=== PATIENT | female | born 1970 | race Caucasian/White ===

== ENCOUNTER 2016-10-26 05:57 | Emergency (ER) | payer BC ==
[2016-10-26] MEDS ORDERED: Ondansetron 4 MG/2 ML SDV IVPUSH ONE (06:19)
[2016-10-26] MEDS ORDERED: Sodium Chloride 0.9% 10 ML Syringe FLUSH PRN (06:19)
--- NOTE | 2016-10-26 06:26 | EDM.PDOC ---
ED HPI GENERAL MEDICAL PROBLEM - General Chief Complaint: Abdominal Pain Stated Complaint: Abdominal Pain Time Seen by Provider: 10/26/16 06:15 Source of Information: Reports: Patient History Limitations: Reports: No Limitations - History of Present Illness INITIAL COMMENTS - FREE TEXT/NARRATIVE: Pt states around midnight began projectile vomiting and abdominal discomfort. Pt states she has thrown up/dry heaving approx every 15-20 minutes since midnight. Diarrhea has also been present with this. Pt denies any foreign travel , raw or under cooked food, or buffet items. She did try a herbal supplement last night called [place]. The last hour pt described an increase in chest pressure midsternal going around to the back. Does not radiate to the arm or jaw. 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 She was hospitalized for 3 days during that illness. Denies any further complications since that event. Onset: Today Onset Date: 10/25/16 Onset Time: 00:00 Duration: Getting Worse Location: Reports: Abdomen Quality: Reports: Pressure, Sharp, Stabbing Severity: Moderate Improves with: Reports: None Worsens with: Reports: None Associated Symptoms: Reports: No Other Symptoms Treatments CROP SPECIALIST: Reports: Other (see below) (Probiotic to see if it would help with abdominal discomfort ) Abdominal Pain Score (Numeric/FACES): 2 - Related Data Allergies Allergy/AdvReac Type Severity Reaction Status Date / Time No Known Allergies Allergy Verified 10/26/16 06:01 Home Meds: Home Meds Escitalopram [Lexapro] 20 mg PO DAILY 10/26/16 [History] busPIRone [Buspar] 10 mg PO QPM 10/26/16 [History] busPIRone [Buspar] 15 mg PO DAILY 10/26/16 [History] ED ROS GENERAL - Review of Systems Review Of Systems: See Below Constitutional: Reports: Malaise, Decreased Appetite. Denies: Fever, Chills, Night Sweats, Diaphoresis HEENT: Reports: No Symptoms Respiratory: Reports: No Symptoms Cardiovascular: Reports: No Symptoms GI/Abdominal: Reports: Abdominal Pain, Anorexia, Diarrhea, Decreased Appetite, Distension, Nausea, Stool Incontinence, Vomiting. Denies: Black Stool, Bloody Stool, Difficulty Swallowing, Hematemesis, Hematochezia, Melena, Mucous in Stool : Reports: Other (burning and lower back discomfort) Musculoskeletal: Reports: No Symptoms Skin: Reports: No Symptoms Neurological: Reports: No Symptoms Psychiatric: Reports: No Symptoms ED EXAM, GI/ABD - Physical Exam Exam: See Below Exam Limited By: No Limitations General Appearance: Alert, WD/WN, No Apparent Distress Nose: Normal Inspection, Normal Mucosa Throat/Mouth: Normal Inspection, Normal Lips Head: Atraumatic, Normocephalic Respiratory/Chest: No Respiratory Distress, Lungs Clear, Normal Breath Sounds, No Accessory Muscle Use, Chest Non-Tender Cardiovascular: Normal Peripheral Pulses, Regular Rate, Rhythm, No Edema, No Gallop GI/Abdominal Exam: Distended, Guarding, Tender. No: Hepatomegaly, Splenomegaly Back Exam: Normal Inspection, Full Range of Motion Extremities: Normal Inspection, Normal Range of Motion, Non-Tender Neurological: Alert, Oriented, CN II-XII Intact Psychiatric: Normal Affect, Normal Mood Skin Exam: Warm, Dry, Intact Lymphatic: No Adenopathy Course - Vital Signs Text/Narrative:: 0700 care of patient was transferred to Shyam COLLIER who assumed care and discharge of the patient and further diagnostics. Last Recorded V/S: Last Vital Signs Temp 37.2 C 10/26/16 06:40 Pulse 82 10/26/16 09:15 Resp 16 10/26/16 09:15 BP 142/78 H 10/26/16 09:15 Pulse Ox 98 10/26/16 09:15 - Orders/Labs/Meds Labs: Laboratory Tests 10/26/16 10/26/16 10/26/16 Range/Units 06:40 06:40 06:50 WBC 6.9 (4.0-10.0) x10^3/uL RBC 3.76 L (4.00-5.50) x10^6/uL Hgb 12.0 (12.0-16.0) g/dL Hct 35.0 (33.0-47.0) % MCV 93.1 H (78.0-93.0) fL MCH 31.9 (26.0-32.0) pg MCHC 34.3 (32.0-36.0) g/dL RDW Coeff of Rebeca 12.7 (10.0-15.0) % Plt Count 196 (130-400) x10^3/uL Neut % (Auto) 76.3 (50.0-80.0) % Lymph % (Auto) 15.0 L (25.0-50.0) % Cowley % (Auto) 5.1 (2.0-11.0) % Eos % (Auto) 3.2 (0.0-4.0) % Baso % (Auto) 0.4 (0.2-1.2) % Sodium 142 (136-145) mmol/L Potassium 3.8 (3.5-5.1) mmol/L Chloride 105 (98-107) mmol/L Carbon Dioxide 27 (21-32) mmol/L BUN 9 (7-18) mg/dL Creatinine 0.8 (0.55-1.02) mg/dL Est Cr Clr Drug Dosing 75.07 mL/min Estimated GFR (MDRD) > 60 Glucose 97 (74-106) mg/dL Calcium 8.3 L (8.5-10.1) mg/dL Corrected Calcium 8.54 (8.5-10.1) mg/dL Total Bilirubin 0.4 (0.2-1.0) mg/dL AST 18 (15-37) U/L ALT 30 (14-59) U/L Alkaline Phosphatase 53 (46-116) U/L Creatine Kinase 88 (26-192) U/L Creatine Kinase Index TNP CK-MB (CK-2) TNP Troponin I < 0.017 (<=0.056) ng/mL Total Protein 7.3 (6.4-8.2) g/dL Albumin 3.7 (3.4-5.0) g/dL Globulin 3.6 Albumin/Globulin Ratio 1.03 Amylase 42 (25-115) U/L Lipase 120 (73-393) U/L Urine Color Yellow (YELLOW) POC Urine Appearance Clear (CLEAR) POC Urine pH 7.0 (5.0-8.0) Ur Specific Lewis 1.015 (1.005-1.030) POC Urine Protein Negative (NEGATIVE) POC Ur Glucose (UA) Negative (NEGATIVE) POC Urine Ketones Negative (NEGATIVE) POC Ur Occult Blood Negative (NEGATIVE) POC Urine Nitrite Negative (NEGATIVE) POC Urine Bilirubin Negative (NEGATIVE) POC Urine Urobilinogen 0.2 (0.2) POC U Leukocyte Esteras Negative (NEGATIVE) Meds: Medications Discontinued Medications Generic Name Dose Route Start Last Admin Trade Name Freq PRN Reason Stop Dose Admin Sodium Chloride 1,000 mls @ 500 mls/hr 10/26/16 06:30 10/26/16 08:15 Normal Saline IV 500 mls/hr ASDIRECTED BAILEY Administration Sodium Chloride 100 mls @ 3 mls/sec 10/26/16 07:15 10/26/16 07:32 Normal Saline IV 3 mls/sec ASDIRECTED BAILEY Administration Iopamidol 100 ml 10/26/16 07:09 10/26/16 07:31 Isovue-300 (61%) IVPUSH 10/26/16 07:10 100 ml ONETIME ONE Administration Ketorolac Tromethamine 30 mg 10/26/16 08:03 10/26/16 08:15 Toradol IVPUSH 10/26/16 08:04 30 mg ONETIME ONE Administration Ondansetron HCl 4 mg 10/26/16 06:19 10/26/16 06:36 Zofran IVPUSH 10/26/16 06:20 4 mg ONETIME ONE Administration Sodium Chloride 10 ml 10/26/16 06:19 Saline Flush FLUSH ASDIRECTED PRN Keep Vein Open Departure - Departure Time of Disposition: 09:20 Disposition: Home, Self-Care 01 Condition: Good Clinical Impression: Cholecystitis - Discharge Information Instructions: Cholecystitis, [id number] Referrals: Tamika Vallejo PA-C [Primary Care Provider] - Forms: ED Department Discharge Additional Instructions: Home to rest. Hope 5/325mg 1 tablet every 4-6 hours as needed for pain. Ibuprofen 600mg every 6 hours as needed for pain. Zofran 4mg ODT 1 tablet every 8 hours as needed for nausea. If discomfort is not controlled with oral pain medication, return either to our ER or [facility] in [place] for evaluation and treatment. Follow-up in clinic in 7-10 days.
[2016-10-26] MEDS: Sodium Chloride 0.9% 1,000 ML IV SCH ×2 (06:36→08:15)
[2016-10-26] MEDS ORDERED: Iopamidol 612 MG/ML 100 ML Bottle IVPUSH ONE (07:09)
[2016-10-26] MEDS ORDERED: Sodium Chloride 0.9% 100 ML IV SCH (07:15)
[2016-10-26 07:17] LABS: CHLORIDE,CL 105 mmol/L (98-107); SODIUM,NA 142 mmol/L (136-145)
[2016-10-26] MEDS ORDERED: Ketorolac 30 MG/ML SDV IVPUSH ONE (08:03)
[2016-10-26 10:13] VITALS: BP 142/78
--- NOTE | 2016-10-28 08:16 | ER ---
Date of Service: 10/26/2016 SUBJECTIVE: Sonali presents to the emergency room with complaints of abdominal pain. She was initially seen by BARBARA Kennedy. Please see her history of present illness and past medical history on her documentation. The patient again has been experiencing severe vomiting and abdominal discomfort. She states that she has been taking an herbal supplement recently. She states that she is not experiencing any lightheadedness. She does have a history of idiopathic pancreatitis, and states that she is experiencing some upper abdominal pain. MEDICATIONS: 1. BuSpar. 2. Lexapro. ALLERGIES: NKDA. REVIEW OF SYSTEMS: Please see Kym Max's documentation. PHYSICAL EXAMINATION: General: A 45-year-old female patient, who is in no acute distress. Vital Signs: Blood pressure is 154/87, heart rate is 111, temperature is 37.2, respiratory rate is 16, and O2 saturations 96%. Skin: Warm, pink, and dry. HEENT: Mouth, oral mucosa is moist. Lungs: Clear to auscultation. Heart: Regular rate and rhythm. Abdomen: Soft, tender in the upper abdomen. There is no mass noted. There is no hepatosplenomegaly noted. IMAGING DATA: CT scan of the patient's abdomen and pelvis were obtained. There was evidence of some free fluid around the gallbladder as well as some thickening to the gallbladder wall, but there was no evidence of any stones or significant inflammatory changes. No other significant pathology noted. There was some fluid in the area of the adnexa, which could possibly be a ruptured ovarian cyst; however, she has not experienced any discomfort in this area. LABORATORY DATA: WBC is 6.9, hemoglobin is 12.0, platelets are 196. Chemistry: Sodium is 142, potassium is 3.8, chloride is 105, bicarb is 27, BUN is 9, creatinine is 0.8, creatinine clearance is 75.07, GFR is greater than 60, glucose is 97, calcium is 8.3, corrected calcium is 8.54, total bilirubin is 0.4, AST is 18, ALT is 30, alkaline phosphatase is 53, troponin is less than 0.017, total protein is 7.3, albumin is 3.7, amylase is 42, lipase is 120. Urinalysis was all within normal limits. EMERGENCY ROOM COURSE: IV access was established. She was given a liter of normal saline. She was also given Toradol 30 mg IV as well as Zofran 4 mg IV. She did report feeling somewhat better at the time of discharge. ASSESSMENT: Upper abdominal pain, likely secondary to cholecystitis. PLAN: The patient will be discharged. I did speak with General Surgery at [place] and discussed the case with them. They advised her to come to the emergency room at [place] if she is experiencing significant discomfort that is not palliated by oral pain medication. Otherwise, they advised her following up with her primary care provider in 7 to 10 days and getting a referral to the General Surgery. I did discuss this with the patient. We will start her on [place] 10/325 with instructions to take 1 every 4 to 6 hours as needed for pain, and was also given a prescription for Zofran ODT with instructions to take 4 mg every 8 hours as needed for nausea. In addition, she can take ibuprofen 600 mg every 6 hours for pain. All questions were answered. MWK: 10/28/2016 03:42:59 MODL: 10/28/2016 05:00:42 /[id number]
== END 2016-10-26 09:15 | disposition home or self-care (01) ==
LOC: VM.ED 05:57
DX: R10.10 Upper abdominal pain, unspecified (principal)
CPT/HCPCS: 36415; 74177; 80053; 81002; 82150; 82550; 83690; 84484; 85025; 93005; 96361; 96374; 96375; 99285; J1885; J2405; J7030; J7050; Q9967

== ENCOUNTER 2020-01-02 23:43 | Emergency (ER) | payer BC ==
[2020-01-03 00:07] VITALS: BP 158/76; PULSE 77
[2020-01-03] MEDS ORDERED: Bupivacaine 0.5% 30 ML SDV INJECT PRN (00:10)
[2020-01-03] MEDS ORDERED: Lidocaine 1% 30 ML SDV INJECT ONE (00:10)
[2020-01-03] MEDS ORDERED: Penicillin V Potassium 500 MG Tab PO STA (00:32)
--- NOTE | 2020-01-03 00:34 | EDM.PDOC ---
ED HPI GENERAL MEDICAL PROBLEM - General Chief Complaint: ENT Problem Stated Complaint: Dental pain Time Seen by Provider: 01/03/20 00:05 Source of Information: Reports: Patient History Limitations: Reports: No Limitations - History of Present Illness INITIAL COMMENTS - FREE TEXT/NARRATIVE: Patient comes emergency department today with complaints of dental pain. This patient is complained of left upper back dental pain for the past 2 to 3 days. She has been taking Tylenol and ibuprofen without much improvement. She has had no recent trauma to her teeth. Her pain is kind of a dull ache but whenever she tries to touch it or bite down on it it is much worse. No fever no chills. No difficulty swallowing or breathing. NO COVID symptoms NO COVID exposure. Treatments BRICK PAVER: Reports: Acetaminophen, NSAIDS Left upper molar Pain Score (Numeric/FACES): 8 - Related Data Allergies Allergy/AdvReac Type Severity Reaction Status Date / Time No Known Allergies Allergy Verified 10/26/16 06:01 Home Meds: Home Meds busPIRone [Buspar] 10 mg PO QPM 10/26/16 [History] busPIRone [Buspar] 15 mg PO DAILY 10/26/16 [History] Penicillin V Potassium 250 mg PO QID #20 tablet 01/03/20 [Rx] Past Medical History Gastrointestinal History: Reports: Pancreatitis Psychiatric History: Reports: Anxiety, Depression - Past Surgical History HEENT Surgical History: Reports: Tonsillectomy Social & Family History - Tobacco Use Tobacco Use Status *Q: Unknown Ever Used Tobacco ED ROS ENT - Review of Systems Review Of Systems: Comprehensive ROS is negative, except as noted in HPI. ED EXAM, ENT - Physical Exam Exam: See Below Exam Limited By: No Limitations General Appearance: Alert, WD/WN, No Apparent Distress Ears: Normal External Exam, Normal TMs Nose: Normal Inspection, Normal Mucousa Mouth/Throat: Normal Inspection (Really a rather normal examination of the oropharynx. The tenderness is on tooth #15. There is a Over this tooth with some gum recession on the medial side of it. There is no erythema induration swelling or abscess. The cap appears intact. Rest of the oropharynx is unremarkable.) Head: Atraumatic, Normocephalic Neck: Normal Inspection, Supple, Non-Tender Respiratory/Chest: No Respiratory Distress Cardiovascular: Normal Peripheral Pulses Skin: Warm, Dry, Intact, Normal Color, No Rash Course - Vital Signs Last Recorded V/S: Last Vital Signs Temp 97.3 F 01/02/20 23:43 Pulse 77 01/02/20 23:43 Resp 16 01/02/20 23:43 BP 158/76 H 01/02/20 23:43 Pulse Ox - Orders/Labs/Meds Meds: Medications Discontinued Medications Generic Name Dose Route Start Last Admin Trade Name Ayana PRN Reason Stop Dose Admin Bupivacaine HCl 30 ml 01/03/20 00:10 01/03/20 00:20 Marcaine 0.5% INJECT 2 ml ASDIRECTED PRN Administration Other Lidocaine HCl 30 ml 01/03/20 00:10 01/03/20 00:20 Xylocaine-Mpf 1% INJECT 01/03/20 00:11 2 ml ONETIME ONE Administration Penicillin V Potassium 500 mg 01/03/20 00:32 01/03/20 00:40 Veetids PO 01/03/20 00:33 500 mg NOW STA Administration - Re-Assessments/Exams Free Text/Narrative Re-Assessment/Exam: She was given a dose of Pen-Vee K in the emergency department. After the risk and benefits of an isolated dental block to that tooth #15 patient gave verbal consent. 1% lidocaine without epinephrine and 0.5% bupivac bora without epinephrine was mixed in a 50-50 fashion. At the base of tooth #15 on the medial and lateral side I injected approximately 1 mils of the above solution into the gum and base of tooth #15. The patient had almost immediate pain relief and complete pain relief. She tolerated the procedure well. No bleeding. I explained to the patient that this will give her hopefully about 8 to 12 hours of anesthesia. She is planning on seeing her dentist tomorrow which is the best course of action. Anything new or worse she is to recheck. She is understanding of this and her questions are answered. Departure - Departure Time of Disposition: 00:33 Disposition: Home, Self-Care 01 Clinical Impression: Pain, dental - Discharge Information Prescriptions: Penicillin V Potassium 250 mg PO QID #20 tablet Instructions: Acute Pain, Adult Referrals: PCP,None [Ordering Only Provider] - Forms: ED Department Discharge Additional Instructions: Continue with the Tylenol and or Ibuprofen as needed for pain. Pen VK, 1 tablet 4 times a day for the next 5 days. RX to [facility]. See a dentist [place]. Return to the ED if new or worsening symptoms. Sepsis Event Note (ED) - Evaluation Sepsis Screening Result: No Definite Risk
== END 2020-01-03 00:45 | disposition home or self-care (01) ==
LOC: VM.ED 23:43
DX: K08.89 Other specified disorders of teeth and supporting structures (principal); F41.9 Anxiety disorder, unspecified; Z79.899 Other long term (current) drug therapy
CPT/HCPCS: 64400; 99282; A9270-GY; J2001; J3490